=== PATIENT | male | born 1975 ===

== ENCOUNTER 2016-08-18 13:49 | Emergency (ER) | payer SELFPAY ==
--- NOTE | 2016-08-23 08:56 | ER ---
ADMIT: 08/18/2016 RM/LOC: [facility] MR#: [id number] [id number] [place], [place] [id number] CATHIE BULLOCK [address] [place] [address] Emergency Room Report SEX: M AGE: 41 : 1975 DATE: 08/18/2016 TIME: 1349 hours. Please refer to my T-sheet for complete H and P. Briefly, the patient is a 41-year-old comes in with back pain. It is bilateral back pain, but it has been bothering him more than usual for about four days, worse when he lifts or does things. He said his urine has been dark. PHYSICAL EXAMINATION: Essentially unremarkable except he has mild tenderness in the lumbar region up into the CVA region. EMERGENCY DEPARTMENT COURSE: His chemistries are normal. CBC was normal. I obtained these after I get a urine that showed 13 red cells. I did a CT scan of his abdomen and pelvis that revealed essentially no findings. I had a long discussion, gave him 2 [place]. He was ready for discharge. ASSESSMENT: 1. Low back pain. 2. Microscopic hematuria. PLAN: Follow up with Dr. Wilkinson. Make sure he follows up with the tests. Repeat his urine in the future. Return if worse. Fluids, Flexeril, and Motrin, and follow up with Dr. Wilkinson. Mayur Sharma MD/ ashwin JOB #: [id number] CC: Mayur Sharma MD, Attending Physician Avelina Wilkinson MD, Family Physician
== END 2016-08-18 16:04 | disposition home or self-care (01) ==
LOC: ER 13:49
DX: M54.5 Low back pain (principal); R31.29 Other microscopic hematuria; F17.200 Nicotine dependence, unspecified, uncomplicated; Z98.890 Other specified postprocedural states